=== PATIENT | male | born 1955 | race Caucasian/White ===

== ENCOUNTER 2017-01-25 15:58 | Emergency (ER) | payer BC ==
[~2017-01-25] VITALS: Ht 172.7 cm; Wt 80.7 kg
[2017-01-25 17:40] VITALS: BP 140/106
== END 2017-01-25 17:40 | disposition home or self-care (01) ==
LOC: EME 15:58
DX: R19.6 Halitosis (principal); T59.91XA Toxic effect of unspecified gases, fumes and vapors, accidental (unintentional), initial encounter
CPT/HCPCS: 71020; 99281; 99283